=== PATIENT | male | born 1980 | race Caucasian/White ===

== ENCOUNTER 2018-11-28 08:42 | Outpatient (CLI) | payer OTHER ==
[2018-11-28 09:21] LABS: APPEARANCE,URINE CLEAR (CLEAR); BASOPHILS # (AUTO) 0.1 K/uL (0.00-0.22); BASOPHILS % (AUTO) 0.8 % (0.0-2.0); BILIRUBIN,URINE NEGATIVE (NEGATIVE); BLOOD, URINE NEGATIVE (NEGATIVE); COLOR,URINE YELLOW (YELLOW); EOSINOPHILS # (AUTO) 0.2 K/uL (0-0.4); LEUKOCYTE ESTERASE ,URINE NEGATIVE (NEGATIVE); MEAN CORPUSCULAR HEMOGLOBIN 31 pg (27-31); MEAN CORPUSCULAR HGB CONC 34 g/dL (33-37); MEAN CORPUSCULAR VOLUME 92.3 fL (80-94); MONOCYTES % (AUTO) 9.1 % (1.7-9.3); NEUTROPHILS # (AUTO) 7.7 K/uL (1.8-7.7); NEUTROPHILS % (AUTO) 70.1 % (42.2-75.2); NITRITE, URINE NEGATIVE (NEGATIVE); PLATELET COUNT (AUTO) 277 K/uL (140-450); RED BLOOD CELL COUNT(AUTO) 5.42 MIL/uL (4.20-6.10); RED CELL DISTRIBUTION WIDTH 12.3 % (11.6-13.7); UGLUCOSE NEGATIVE (NEGATIVE)
[2018-11-28 09:44] LABS: ANION GAP 12.4 (8-16); CARBON DIOXIDE 29.6 mmol/L (21-32); CHOL/HDL RATIO 4.2 (1-4.5); CREATININE 1.2 mg/dL (0.7-1.3); MAGNESIUM 2.5 mg/dL (1.8-2.4); THYROID STIMULATING HORMONE 2.12 uIU/mL (0.34-3.74); TOTAL BILIRUBIN 0.9 mg/dL (0.0-1.0)
== END 2018-11-28 20:44 | disposition home or self-care (01) ==
LOC: MLB 08:42
PROVIDERS: ATTEND Family Medicine
DX: Z00.00 Encounter for general adult medical examination without abnormal findings (principal); K42.9 Umbilical hernia without obstruction or gangrene
CPT/HCPCS: 36415; 80053; 81003; 83036; 83735; 84436; 84443; 85025